=== PATIENT | male | born 1955 | race African-American/Black ===

== ENCOUNTER 2018-05-30 07:59 | Day surgery (SDC) | payer BC ==
[2018-05-30] MEDS ORDERED: LIDOCAINE 2% (SDV) 5 ML INJ (09:35)
[2018-05-30] MEDS ORDERED: PROPOFOL 60 ML (09:35)
== END 2018-05-30 14:37 | disposition home or self-care (01) ==
LOC: GIL 07:59
DX: Z12.11 Encounter for screening for malignant neoplasm of colon (principal); D12.2 Benign neoplasm of ascending colon; D12.3 Benign neoplasm of transverse colon
CPT/HCPCS: 45380; 88305

== ENCOUNTER 2019-05-09 10:47 | Day surgery (SDC) | payer OTHER ==
[2019-05-09] MEDS ORDERED: ROCURONIUM 50 MG INJ (12:27)
[2019-05-09] MEDS ORDERED: GLYCOPYRROLATE 0.4 MG INJ ×2 (12:27→13:24)
[2019-05-09] MEDS ORDERED: SUCCINYLCHOLINE CHLORIDE 100 MG/5 ML SYG IV (12:27)
[2019-05-09] MEDS ORDERED: NEOSTIGMINE 3 MG/3 ML SYRINGE ×2 (12:27→13:24)
[2019-05-09] MEDS ORDERED: LIDOCAINE 2% (SDV) 5 ML INJ (12:27)
[2019-05-09] MEDS ORDERED: PROPOFOL 20 ML (12:27)
[2019-05-09] MEDS ORDERED: LACTATED RINGER'S 1,000 ML IV (13:00)
[2019-05-09] MEDS ORDERED: ONDANSETRON 4 MG INJ (13:24)
[2019-05-09] MEDS ORDERED: CEFAZOLIN 1 GM INJ (13:24)
[2019-05-09] MEDS ORDERED: MEPERIDINE 25 MG INJ IV (13:30)
[2019-05-09] MEDS ORDERED: EPHEDrine 25 MG/5 ML SYG IV (13:30)
[2019-05-09] MEDS ORDERED: LABETALOL HCL 20MG INJ IV (13:30)
[2019-05-09] MEDS ORDERED: DIPHENHYDRAMINE 50 MG INJ IV (13:30)
[2019-05-09] MEDS ORDERED: HYDROmorphONE 1 MG/5 ML IV SYRINGE IV ×3 (13:30)
[2019-05-09] MEDS ORDERED: MIDAZOLAM 1 MG/ML 2 ML INJ IV (13:30)
[2019-05-09] MEDS ORDERED: hydrALAzine 20 MG INJ IV (13:30)
[2019-05-09] MEDS ORDERED: FENTAnyl 50 MCG/ML VIAL IV ×3 (13:30)
[2019-05-09] MEDS ORDERED: METOCLOPRAMIDE 10 MG INJ IV (13:30)
[2019-05-09] MEDS ORDERED: OXYCODONE/ACETAMINOPHEN (5/325) TAB PO ×2 (13:30)
[2019-05-09] MEDS ORDERED: ONDANSETRON 4 MG INJ IV (13:30)
[2019-05-09] MEDS: HYDROCODONE/APAP (5/325) TAB PO (14:48)
== END 2019-05-09 16:15 | disposition home or self-care (01) ==
LOC: SDS 10:47
DX: N21.0 Calculus in bladder (principal); I10 Essential (primary) hypertension; G89.29 Other chronic pain
CPT/HCPCS: 52224; 87086; 88300; 88305

== ENCOUNTER 2019-05-19 08:26 | Day surgery (SDC) | payer OTHER ==
[2019-05-19] MEDS ORDERED: PROPOFOL 40 ML (09:34)
== END 2019-05-19 13:10 | disposition home or self-care (01) ==
LOC: GIL 08:26
DX: Z12.11 Encounter for screening for malignant neoplasm of colon (principal); D12.3 Benign neoplasm of transverse colon; K44.9 Diaphragmatic hernia without obstruction or gangrene; K21.9 Gastro-esophageal reflux disease without esophagitis; K29.50 Unspecified chronic gastritis without bleeding; I10 Essential (primary) hypertension; Z86.73 Personal history of transient ischemic attack (TIA), and cerebral infarction without residual deficits; G40.909 Epilepsy, unspecified, not intractable, without status epilepticus
CPT/HCPCS: 43239; 88305; 88312